=== PATIENT | male | born 1960 | race Caucasian/White ===

== ENCOUNTER → 2024-09-05 | Outpatient (RCR) | payer MEDICARE | LOC: PT 08-13 11:15 | PROVIDERS: ATTEND Student in an Organized Health Care Education/Training Program | DX: M54.16 Radiculopathy, lumbar region (principal) ==

== ENCOUNTER 2024-09-26 08:00 | Outpatient (RCR) | payer MEDICARE | END 2024-10-06 | LOC: PT 08:00 | PROVIDERS: ATTEND Student in an Organized Health Care Education/Training Program | DX: M54.16 Radiculopathy, lumbar region (principal) ==

== ENCOUNTER 2024-10-16 14:00 | Outpatient (RCR) | payer MEDICARE | END 2024-11-05 | LOC: PT 14:00 | PROVIDERS: ATTEND Student in an Organized Health Care Education/Training Program | DX: M54.16 Radiculopathy, lumbar region (principal) ==